=== PATIENT | female | born 1970 | race African-American/Black ===

== ENCOUNTER 2018-08-26 00:59 | Emergency (ER) | payer SELFPAY ==
[~2018-08-26] VITALS: Ht 167.6 cm; Wt 70.0 kg
[2018-08-26 05:46] VITALS: BP 115/71
== END 2018-08-26 06:32 | disposition home or self-care (01) ==
LOC: ER 00:59
DX: R68.84 Jaw pain (principal); R55 Syncope and collapse; J45.909 Unspecified asthma, uncomplicated; Z88.0 Allergy status to penicillin; Y08.89XA Assault by other specified means, initial encounter; Y93.89 Activity, other specified; Y92.89 Other specified places as the place of occurrence of the external cause; Y99.8 Other external cause status
CPT/HCPCS: 70486; 81025; 99284